=== PATIENT | male | born 1980 | race Caucasian/White ===

== ENCOUNTER 2021-03-02 05:53 | Day surgery (SDC) | payer OTHER ==
[~2021-03-02] VITALS: Ht 175.3 cm; Wt 119.9 kg
[~2021-03-02 05:53] MED LIST: ALLEGRA ALLERG180 MG PO; BUSP5 PO; MAGNESIUM; MELA3; PROP60
--- NOTE | 2021-03-02 08:29 | NUR ---
03/02/21 0829 Leia Flannery NOTE ABDOMINAL SKIN ABRASIONS FROM PRE-OP CLIPPER SHAVE. DR. SPICER ASSESSED AREA.
--- NOTE | 2021-03-02 11:22 | NUR ---
Patient up to Ambulate independently. Gait steady. Discharge instructions reviewed with patient. Patient verbalizes understanding. Copy given to patient to take home. Discharged via wheelchair to private car for ride home WITH ROOMATE. PATIENT REPORTS PAIN TOLERABLE, DENIES NAUSEA.
== END 2021-03-02 22:43 | disposition home or self-care (01) ==
LOC: ORSCMMR 05:53 → ORSCSDS 13:00 → ORSCMMR 13:00
PROVIDERS: Surgery
PROC: BF031ZZ Plain Radiography of Gallbladder and Bile Ducts using Low Osmolar Contrast (ICD-10-PCS; principal; 2021-03-02 07:30)
PROC: 0FT44ZZ Resection of Gallbladder, Percutaneous Endoscopic Approach (ICD-10-PCS; principal; 2021-03-02 07:30)
DX: K80.10 Calculus of gallbladder with chronic cholecystitis without obstruction (principal); E66.01 Morbid (severe) obesity due to excess calories; Z68.39 Body mass index [BMI] 39.0-39.9, adult; F41.9 Anxiety disorder, unspecified; F43.10 Post-traumatic stress disorder, unspecified; Z79.899 Other long term (current) drug therapy
CPT/HCPCS: 74300; 88304; A9270; C1729; J0690; J1885; J2250; J2370; J3010; J7120